=== PATIENT | female | born 1945 | race Caucasian/White ===

== ENCOUNTER 2021-04-04 02:18 | Emergency (ER) | payer MEDICARE ==
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
--- NOTE | 2021-04-04 10:46 | CR ---
INDICATION: Left mid back and lateral chest pain. CHEST TWO VIEWS: PA and lateral views of the chest 04/04/21 were obtained - no comparisons. Density behind the heart raises the question of a fixed hiatal hernia although other mass is difficult to exclude. The aorta is tortuous with some calcification in the arch. Degenerative changes and disc disease is suggested in the mid thoracic spine with dextroconvex slight rotoscoliosis suggested. Degenerative changes are noted at the left glenohumeral joint with sclerosis at the acromion compatible with rotator cuff injury or degeneration with impingement. An active infiltrate or effusion was not identified. IMPRESSION: No acute process - multiple findings as noted above. MTDD
== END 2021-04-04 05:30 | disposition home or self-care (01) ==
LOC: FB.ED 02:18
DX: R07.9 Chest pain, unspecified (principal); M25.512 Pain in left shoulder; E03.9 Hypothyroidism, unspecified; Z79.82 Long term (current) use of aspirin; Z79.899 Other long term (current) drug therapy
CPT/HCPCS: 36415; 71046; 80053; 81001; 83735; 84484; 85025; 85379; 93005; 93010; 99283; 99284-25